=== PATIENT | female | born 1940 | race Caucasian/White ===

== ENCOUNTER → 2020-06-22 12:55 | Outpatient (CLI) | payer MEDICARE, SELFPAY ==
--- NOTE | ~2020-06-22 | MM_ITS ---
EXAMINATION: MM screening [facility] w sarah HISTORY: Screening TECHNIQUE: Craniocaudal and mediolateral oblique 3-D tomosynthesis images were obtained and synthetic 2-D images were generated. CAD analysis was submitted and interpreted. COMPARISON: Comparison to multiple prior studies sequentially, with oldest reviewed study dated 10/31. BREAST PARENCHYMAL COMPOSITION: There are scattered areas of fibroglandular density. FINDINGS: There is no evidence of suspicious mass, calcification, or architectural distortion to sugg est malignancy in either breast. There has been no suspicious interval change. IMPRESSION: 1. No mammographic evidence of malignancy. 2. Recommend routine screening mammography in one year. BI-RADS Category 1: Negative Reviewed, dictated and finalized at location A.
== END ==
PROVIDERS: PCP Family Medicine; Visit Provider Obstetrics & Gynecology
DX: Z12.31 Encounter for screening mammogram for malignant neoplasm of breast (principal)
CPT/HCPCS: 77063; 77067

== ENCOUNTER → 2021-07-25 13:49 | Outpatient (CLI) | payer MEDICARE, SELFPAY ==
--- NOTE | ~2021-07-25 | MM_ITS ---
EXAMINATION: MM screening [facility] w sarah HISTORY: Screening TECHNIQUE: Craniocaudal and mediolateral oblique 3-D tomosynthesis images were obtained and synthetic 2-D images were generated. CAD analysis was submitted and interpreted. COMPARISON: Comparison to multiple prior studies sequentially, with oldest reviewed study dated 12/09. BREAST PARENCHYMAL COMPOSITION: The breasts are almost entirely fatty. FINDINGS: There is no evidence of suspicious mass, calcification, or architectural distortion to sugg est malignancy in either breast. There has been no suspicious interval change. IMPRESSION: 1. No mammographic evidence of malignancy. 2. Recommend routine screening mammography in one year. BI-RADS Category 1: Negative Reviewed, dictated and finalized at location A.
== END ==
PROVIDERS: PCP Student in an Organized Health Care Education/Training Program; Visit Provider Obstetrics & Gynecology
DX: Z12.31 Encounter for screening mammogram for malignant neoplasm of breast (principal)
CPT/HCPCS: 77063; 77067

== ENCOUNTER → 2022-03-02 12:20 | Outpatient (CLI) | payer MEDICARE, SELFPAY ==
--- NOTE | ~2022-03-02 | XR_ITS ---
EXAMINATION: XR lumbar spine 2-3V DATE: 03/02/2022 13:14 INDICATION: Chronic left-sided low back pain without sciatica. TECHNIQUE: 3 views of lumbar spine were obtained. COMPARISON: Lumbar spine radiographs 08/02/2017 FINDINGS: There is 32 degrees dextroscoliosis of lumbar spine. Vertebral body heights are normal. The re is severely decreased disc height from L1-L2 through L5-S1 with endplate remodeling. There is mult ilevel severe facet joint osteoarthritis. A rim-calcified mass in right upper quadrant is likely a ga llstone in the gallbladder. IMPRESSION: 1. Severe lumbar spondylosis, stable from 08/02/2017. 2. Lumbar dextroscoliosis. Reviewed, dictated and finalized at location A.
--- NOTE | ~2022-03-02 | XR_ITS ---
EXAMINATION: XR thoracic spine 3V DATE: 03/02/2022 13:14 INDICATION: Chronic left-sided low back pain without sciatica. TECHNIQUE: 3 views of the thoracic spine were obtained. COMPARISON: None. FINDINGS: There is 6 degrees levocurvature of upper thoracic spine, 7 degrees dextrocurvature of mid thoracic spine, and 15 degrees levoscoliosis of thoracolumbar spine. Vertebral body heights are gabby l. There is moderate to severely decreased disc height from T4-T5 through T6-T7. There is mildly decr eased disc height at other levels. There are endplate osteophytes at most levels. There is severe cer vical spondylosis. IMPRESSION: 1. Severe mid thoracic spondylosis. Reviewed, dictated and finalized at location A.
== END ==
PROVIDERS: PCP Student in an Organized Health Care Education/Training Program; Visit Provider Student in an Organized Health Care Education/Training Program
DX: M47.894 Other spondylosis, thoracic region (principal); M47.896 Other spondylosis, lumbar region
CPT/HCPCS: 72072; 72100

== ENCOUNTER → 2022-03-23 12:57 | Outpatient (CLI) | payer MEDICARE, SELFPAY ==
--- NOTE | ~2022-03-23 | MR_ITS ---
EXAMINATION: MR thoracic spine wo con DATE: 03/23/2022 13:41 INDICATION: Chronic left-sided low back pain. Mid back pain. TECHNIQUE: Magnetic resonance imaging (MRI) of the thoracic spine was performed without intravenous c ontrast. Sagittal localizer T1-weighted FSE of the cervical spine was obtained. Thoracic spine sequen shasta included sagittal T2-weighted FSE, sagittal T1-weighted FSE, sagittal T2-weighted FS FSE, and axi al T2-weighted FSE. COMPARISON: Thoracic spine radiographs 03/02/2022 FINDINGS: There is 18 degrees levoscoliosis of thoracic spine. There is 2 mm anterolisthesis of C7 on T1. Vertebral body heights are normal. There is mildly decreased disc height at T4-T5, moderately de creased disc height from T5-T6 through T7-T8, and mildly decreased disc height at T12-L1. There is mu ltilevel severe facet joint osteoarthritis. There is mild neural foraminal stenosis at many levels on either side. On the right, there is moderate right neural foraminal stenosis at T2-T3. At T1-T2, the re is a central protrusion with mild central canal stenosis. At T5-T6, there is a central protrusion with mild central canal stenosis. At T12-L1, the disc is bulging with mild central canal stenosis. Th e spinal cord signal intensity is normal. IMPRESSION: 1. Moderate thoracic spondylosis. 2. Thoracic levoscoliosis. Reviewed, dictated and finalized at location A.
--- NOTE | ~2022-03-23 | MR_ITS ---
EXAMINATION: MR lumbar spine wo con DATE: 03/23/2022 13:46 INDICATION: Chronic left-sided low back pain. TECHNIQUE: Magnetic resonance imaging (MRI) of the lumbar spine was performed without intravenous con trast. Sequences included sagittal T2-weighted FSE, sagittal T2-weighted FS FSE, sagittal T1-weighted FSE, and axial T2-weighted FSE. COMPARISON: Lumbar spine MRI 07/25/2017 FINDINGS: There is 34 degrees dextroscoliosis of lumbar spine. There is 3 mm retrolisthesis of L5 on S1. There is severely decreased disc height from L1-L2 through L5-S1 with endplate remodeling. There is mild chronic anterior wedging of L1 and L2 vertebral bodies. The distal spinal cord signal intensi ty is normal. The conus medullaris is at L1. The following disc levels are specifically discussed: L1-L2: The disc is bulging and has an annular fissure. There is severe bilateral facet joint osteoart hritis. There is mild bilateral neural foraminal stenosis. There is mild central canal stenosis. L2-L3: The disc is bulging and has an annular fissure. There is mild bilateral facet joint osteoarthr itis. There is mild right and moderate left neural foraminal stenosis. There is mild central canal st enosis. L3-L4: The disc is bulging and has an annular fissure. There is severe bilateral facet joint osteoart hritis. There is mild bilateral neural foraminal stenosis. There is mild central canal stenosis. L4-L5: The disc is bulging and has an annular fissure. There is severe bilateral facet joint osteoart hritis. There is moderate right and mild left neural foraminal stenosis. There is moderate central ca nal stenosis. L5-S1: The disc is bulging and has an annular fissure. There is severe bilateral facet joint osteoart hritis. There is moderate right and mild left neural foraminal stenosis. There is mild central canal stenosis. IMPRESSION: 1. Severe lumbar spondylosis, stable from 07/25/2017. 2. Lumbar dextroscoliosis. Reviewed, dictated and finalized at location A.
== END ==
PROVIDERS: PCP Student in an Organized Health Care Education/Training Program; Visit Provider Student in an Organized Health Care Education/Training Program
DX: M51.36 Other intervertebral disc degeneration, lumbar region (principal); M19.90 Unspecified osteoarthritis, unspecified site; M51.34 Other intervertebral disc degeneration, thoracic region; M47.894 Other spondylosis, thoracic region; M47.896 Other spondylosis, lumbar region
CPT/HCPCS: 72146; 72148

== ENCOUNTER → 2022-10-26 13:23 | Outpatient (CLI) | payer MEDICARE, SELFPAY ==
--- NOTE | ~2022-10-26 | MM_ITS ---
EXAMINATION: MM screening [facility] w sarah HISTORY: Screening TECHNIQUE: Craniocaudal and mediolateral oblique 3-D tomosynthesis images were obtained and synthetic 2-D images were generated. CAD analysis was submitted and interpreted. COMPARISON: Comparison to multiple prior studies sequentially, with oldest reviewed study dated 01/27. BREAST PARENCHYMAL COMPOSITION: There are scattered areas of fibroglandular density. FINDINGS: There is no evidence of suspicious mass, calcification, or architectural distortion to sugg est malignancy in either breast. There has been no suspicious interval change. IMPRESSION: 1. No mammographic evidence of malignancy. 2. Recommend routine screening mammography in one year. BI-RADS Category 1: Negative Reviewed, dictated and finalized at location A. 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
== END ==
PROVIDERS: PCP Student in an Organized Health Care Education/Training Program; Visit Provider Obstetrics & Gynecology
DX: Z12.31 Encounter for screening mammogram for malignant neoplasm of breast (principal)
CPT/HCPCS: 77063; 77067

== ENCOUNTER → 2023-08-31 13:28 | Outpatient (CLI) | payer MEDICARE, SELFPAY ==
--- NOTE | ~2023-08-31 | DEXA_ITS ---
Bone Density Report Name: CONSUELO BURROWS Age: 83 Sex: Female Ethnicity: White Date of : 1940 Indication: postmenopausal; screening for osteoporosis; height loss; Referring Provider: Gil, Nathan Study: Bone densitometry was performed. Exam Date: August 31, 2023 Accession number: [id number] Bone Density: Region BMD T-score Z-score Classification AP Spine (L3, L4) 1.146 0.4 3.3 Normal Femoral Neck (Left) 0.660 -1.7 0.7 Osteopenia Total Hip (Left) 0.892 -0.4 1.7 Normal Femoral Neck (Right) 0.679 -1.5 0.8 Osteopenia Total Hip (Right) 0.808 -1.1 1.0 Osteopenia Total Hip Mean 0.850 -0.8 1.4 Normal World Health Organization criteria for BMD impression classify patients as: Normal (T-score at or above -1.0), Osteopenia (T-score between -1.0 and -2.5), or Osteoporosis (T-score at or below -2.5). 10-year Fracture Risk(1): Major Osteoporotic Fracture 14% Hip Fracture 3.6% Reported Risk Factors: [place] (), Neck BMD=0.660, BMI=33.7 (1) FRAX(R) Version 3.08. Fracture probability calculated for an untreated patient. Fracture probability may be lower if the patient has received treatment. Previous Exams: Region Exam Age BMD T-score BMD Change BMD Change Date g/cm2 vs Baseline vs Previous AP Spine(L3, L4) 08/31/2023 83 1.146 0.4 -0.100* -0.100* 05/23/2019 79 1.246 1.3 Total Hip(Left) 08/31/2023 83 0.892 -0.4 -0.040* -0.040* 05/23/2019 79 0.932 -0.1 Total Hip(Right) 08/31/2023 83 0.808 -1.1 -0.034* -0.034* 05/23/2019 79 0.842 -0.8 *Denotes significance at 95% confidence level, LSC for AP Spine = 0.022 g/cm2, LSC for Total Hip = 0.027 g/cm2 Clinical Information Provided by Patient: Has used the following medications: Vitamin D Patient maximum height was 66.75 Menopause Age: 57 No regular weight bearing exercise Does not regularly consume dairy products Drinks caffeinated beverages Onset of menses at age 14 Number of children 1 Impression: The patient has low bone mass, based on the Left Femoral Neck T-score. The patient has an estimated ten-year risk of hip fracture of 3.6% and an estimated ten-year risk of major fracture of 14%, based on the WHO FRAX algorithm. The BMD for the AP Spine(L3, L4) decreased, changing by -0.100 since the last DXA exam. The BMD for the Total Hip(Left) decreased, changing by -0.040 since the last DXA exam. The BMD for the
== END ==
PROVIDERS: PCP Obstetrics & Gynecology; Visit Provider Student in an Organized Health Care Education/Training Program
DX: Z78.0 Asymptomatic menopausal state (principal); M85.852 Other specified disorders of bone density and structure, left thigh; M85.851 Other specified disorders of bone density and structure, right thigh
CPT/HCPCS: 77080

== ENCOUNTER 2023-09-17 16:13 | Outpatient (CLI) | payer MEDICARE, SELFPAY ==
[2023-09-17 17:27] LABS: Basophils Absolute Auto 0.1 K/mm3 (0.0-0.1); Basophils Percent Auto 0.8 % (0.2-1.2); Eosinophils Absolute Auto 0.2 K/mm3 (0-0.3); Hematocrit 41.4 % (37.0-47.0); Hemoglobin 13.8 g/dL (12.0-15.0); Immature Granulocyte Absolute 0.05 K/mm3 (0.00-0.031); Immature Granulocyte Percent A 0.6 % (0-0.5); Lymphocytes Absolute Auto 1.72 K/mm3 (0.9-3.2); Lymphocytes Percent Auto 21.8 % (18.3-44.2); Mean Corpuscular HGB Conc 33.3 g/dl (32-36); Mean Corpuscular Hemoglobin 32.2 pg (26-34); Mean Corpuscular Volume 96.7 fl (80-100); Mean Platelet Volume 10.5 fl (7.4-10.4); Monocytes Absolute Auto 0.9 K/mm3 (0.1-0.6); Monocytes Percent Auto 10.9 % (2.6-8.5); Neutrophils Percent Auto 62.9 % (45.5-73.1); Platelet Count Result 233 k/mm3 (150-375); Red Blood Count 4.28 M/mm3 (4.2-5.4); Red Cell Distribution Width 13.1 % (11.5-14.5); White Blood Count 7.9 K/mm3 (4.5-10.0)
[2023-09-17 17:33] LABS: Appearance Urine Clear (Clear); Bacteria Urine 3+ /hpf; Bilirubin Urine Negative (Negative); Blood Urine Negative (Negative); Color Urine Yellow (Yellow); Glucose Urine UA Negative (Negative); Ketones Urine Negative (Negative); Leukocyte Esterase Ur 1+ LEU/UL (Negative); Nitrate Urine Negative (Negative); Non Pathogenic Casts 0-2; Protein Urine Negative (Negative); RBC Urine 0-2 /hpf (0-2); Specific Grav Ur 1.007 (1.001-1.035); Squamous Epithelial Cell Urine None seen /hpf (Few); Urobilinogen Urine 0.2 mg/dL (<2.0); WBC Urine 21-50 /hpf; pH Urine 6.5 (5.0-9.0)
[2023-09-17 17:47] LABS: Alanine Aminotransferase 28 U/L (6-35); Albumin Level 4.4 g/dL (3.5-5.1); Alkaline Phosphatase 77 U/L (38-126); Anion Gap 10 mmol/L (8-16); Aspartate Amino Transferase 37 U/L (14-36); Bilirubin,Total 0.9 mg/dL (0.2-1.3); Blood Urea Nitrogen 15 mg/dL (7-17); Calcium 9.6 mg/dL (8.4-10.2); Carbon Dioxide 28 mmol/L (22-30); Chloride 98 mmol/L (98-107); Cholesterol 169 mg/dL (0-200); Estimated Glomerular Filt Rate > 60; Glucose 97 mg/dL (65-110); HDL Direct 54 mg/dL; Potassium 3.6 mmol/L (3.4-5.0); Sodium 136 mmol/L (137-145); Triglycerides 182 mg/dL (<150)
[2023-09-17 17:49] LABS: Add Urine Microscopic? YES
[2023-09-17 17:58] LABS: LDL Cholesterol Direct 78 mg/dL
== END 2023-09-17 16:14 | disposition home or self-care (01) ==
LOC: ANHLAB 16:17
PROVIDERS: PCP Student in an Organized Health Care Education/Training Program; Visit Provider Student in an Organized Health Care Education/Training Program
DX: E78.5 Hyperlipidemia, unspecified (principal); R55 Syncope and collapse; I10 Essential (primary) hypertension
CPT/HCPCS: 36415; 80053; 80061; 81001; 84443; 85025; 87077; 87086; 87186

== ENCOUNTER → 2023-11-15 13:15 | Outpatient (CLI) | payer MEDICARE, SELFPAY ==
--- NOTE | ~2023-11-15 | MM_ITS ---
EXAMINATION: MM screening [facility] BI w sarah HISTORY: Screening TECHNIQUE: Craniocaudal and mediolateral oblique 3-D tomosynthesis images were obtained and synthetic 2-D images were generated. CAD analysis was submitted and interpreted. COMPARISON: Comparison to multiple prior studies sequentially, with oldest reviewed study dated 04/24. BREAST PARENCHYMAL COMPOSITION: Not Dense: Breast are almost entirely fatty. FINDINGS: There is no evidence of suspicious mass, calcification, or architectural distortion to sugg est malignancy in either breast. There has been no suspicious interval change. IMPRESSION: 1. No mammographic evidence of malignancy. 2. Recommend routine screening mammography in one year. BI-RADS Category 1: Negative Reviewed, dictated and finalized at location A. 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
== END ==
PROVIDERS: PCP Student in an Organized Health Care Education/Training Program; Visit Provider Obstetrics & Gynecology
DX: Z12.31 Encounter for screening mammogram for malignant neoplasm of breast (principal)
CPT/HCPCS: 77063; 77067

== ENCOUNTER 2023-12-18 09:43 | Outpatient (CLI) | payer MEDICARE, SELFPAY ==
--- NOTE | ~2023-12-18 | US_ITS ---
EXAMINATION: US abdomen limited DATE: 12/18/2023 10:26 INDICATION: Elevated liver enzymes TECHNIQUE: Multiple grayscale and Doppler ultrasound images of the abdomen were obtained. COMPARISON: None available FINDINGS: The head and body of the pancreas are normal. The pancreatic tail is obscured by bowel gas. The liver is normal with normal echogenicity and echotexture. No surface nodularity. Normal hepatope meron flow in the main portal vein. A stone is present in the nondistended gallbladder. No pericholecys tic fluid or gallbladder wall thickening. The normal common bile duct measures 5 mm. There was no son ographic Hathaway sign. IMPRESSION: 1. Cholelithiasis without evidence of cholecystitis. Reviewed, dictated and finalized at location L. 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
== END 2023-12-18 09:44 | disposition home or self-care (01) ==
LOC: ANHIMG 09:45
PROVIDERS: PCP Student in an Organized Health Care Education/Training Program; Visit Provider Student in an Organized Health Care Education/Training Program
DX: R74.8 Abnormal levels of other serum enzymes (principal); K80.20 Calculus of gallbladder without cholecystitis without obstruction
CPT/HCPCS: 76705

== ENCOUNTER 2024-06-09 13:53 | Outpatient (CLI) | payer MEDICARE, SELFPAY ==
--- NOTE | ~2024-06-09 | US_ITS ---
EXAMINATION: US soft tissue UE RT DATE: 06/09/2024 14:16 INDICATION: Neoplasm of skin TECHNIQUE: Multiple grayscale and Doppler ultrasound images of the right upper limb were obtained. COMPARISON: None FINDINGS: In the right upper limb near the shoulder, there is a 4.9 x 4.0 x 4.0 cm cystic mass with t hick septation. IMPRESSION: 1. 4.9 cm cystic mass near the right shoulder, which may be a neoplasm or hematoma. MRI without and w ith contrast is recommended. Reviewed, dictated and finalized at location A. IMPRESSION: 1. 4.9 cm cystic mass near the right shoulder, which may be a neoplasm or hemat krysten. MRI without and with contrast is recommended.
== END 2024-06-09 13:54 ==
PROVIDERS: PCP Student in an Organized Health Care Education/Training Program; Visit Provider Registered Nurse
DX: D48.5 Neoplasm of uncertain behavior of skin (principal); R59.0 Localized enlarged lymph nodes; D17.1 Benign lipomatous neoplasm of skin and subcutaneous tissue of trunk
CPT/HCPCS: 76882

== ENCOUNTER 2024-07-18 13:56 | Outpatient (CLI) | payer MEDICARE, SELFPAY ==
--- NOTE | ~2024-07-18 | MR_ITS ---
EXAMINATION: MR shoulder RT wo/w con DATE: 07/18/2024 15:07 INDICATION: Prior skin cancer presenting with nonpainful lump at the right shoulder TECHNIQUE: Magnetic resonance imaging (MRI) of the right shoulder was performed without intravenous c ontrast. Sequences included axial PD-weighted FS FSE, axial T1-weighted FS FSE, coronal oblique PD-we ighted FS FSE, coronal oblique T2-weighted FS FSE, sagittal T2-weighted FS FSE, sagittal T1-weighted SE. And postcontrast axial, sagittal and coronal T1-weighted FS FSE COMPARISON: None. FINDINGS: Coracoacromial arch: The acromion undersurface is curved in morphology (type II). There are small marginal osteophytes alee ng the anterior lateral margin of the acromion along the insertion of the normal coracoacromial ligam ent. There is prominent widening of the acromioclavicular joint space with erosive changes at both si lory of the joint space. No loss of T1 hyperintense marrow fat signal along the margins of the erosion s to suggest osteomyelitis. Rotator cuff: Moderate supraspinatus and infraspinatus tendinopathy. There is a partial-thickness articular sided t ear with attenuation of the distal tendon and retracted articular sided tear margin position 1.7 cm f rom the superior facet footplate near the level of the apex of the humeral head. The tear appears to extend across the length of the superior facet footplate. There is a small portion of the tear nonprofit manager iorly measuring approximately 4 mm AP which extends through the majority the thickness of the tendon but without definitive discontinuity along the bursal side of the tendon. The teres minor tendon is n ormal. Moderate subscapularis tendinopathy with small split tear occurring along the medial rim of th e intertubercular groove between the portion of the tendon attached to the lesser tuberosity footplat e and the bursal side of the tendon which remains contiguous with the intact transverse humeral ligam ent. There is mild supraspinatus and infraspinatus muscle atrophy. Biceps tendon, glenoid labrum and glenohumeral cartilage: There is moderate tendinopathy and longitudinal split tearing of the intra-articular and extra articu lar portion of the long head biceps tendon which is subluxed along the cephalad medial rim of the int ertubercular groove and into the subscapularis tendon split tear defect. There is severe glenohumeral osteoarthritis with extensive full and near full-thickness cartilage loss on both the glenoid and hu meral head with subarticular cystlike changes most prominent at the superomedial aspect of the bladimir l head and along the cephalad margin of the glenoid. There is some remodeling of the humeral head and glenoid. There are also large marginal osteophytes along the inferior aspect of the humeral head. Th ere is diffuse degenerative tearing of the glenoid labrum. Fluid: There is increased fluid in the long head biceps tendon sheath disproportionately small amount of flu id in the right humeral joint space consistent with bicipital tenosynovitis. There is moderate synovi tis in the recess of the glenohumeral joint space along with 6 mm ovoid loose osteochondral body at t he axillary recess. There is a large amount of fluid in the subacromial/subdeltoid bursa which extend s across the widened acromioclavicular joint space to communicate with a 5.3 x 3.7 x 3.0 cm loculated fluid collection which bulges cephalad exerting mass effect upon the undersurface of the trapezium a nd which appears to account for the reported mass of concern. Synovial enhancement at the glenohumera l joint space as well as at the margins of the subacromial bursa and bulging supraclavicular fluid co llection. Bones: No fracture or pathologic marrow replacing process. IMPRESSION: 1. Severe right glenohumeral osteoarthritis with diffuse labral degeneration. 2. Moderate rotator cuff tendinopathy with small partial-thickness articular sided tear
== END 2024-07-18 13:57 | disposition home or self-care (01) ==
LOC: MICIMG 13:59
PROVIDERS: PCP Student in an Organized Health Care Education/Training Program
DX: D48.5 Neoplasm of uncertain behavior of skin (principal); M19.011 Primary osteoarthritis, right shoulder; M75.101 Unspecified rotator cuff tear or rupture of right shoulder, not specified as traumatic
CPT/HCPCS: 73223; A9577

== ENCOUNTER 2025-08-12 14:43 | Outpatient (CLI) | payer MEDICARE, SELFPAY ==
--- NOTE | ~2025-08-12 | MM_ITS ---
EXAMINATION: MM screening [facility] BI w sarah HISTORY: Screening TECHNIQUE: Craniocaudal and mediolateral oblique 3-D tomosynthesis images were obtained and synthetic 2-D images were generated. CAD analysis was submitted and interpreted. COMPARISON: Comparison to multiple prior studies sequentially, with oldest reviewed study dated 07/25/2017. BREAST PARENCHYMAL COMPOSITION: Not Dense. The breasts are almost entirely fatty. FINDINGS: There is no evidence of suspicious mass, calcification, or architectural distortion to suggest malignancy in either breast. There has been no suspicious interval change. IMPRESSION: 1. No mammographic evidence of malignancy. 2. Recommend routine screening mammography in one year. BI-RADS Category 1: Negative Reviewed, dictated and finalized at location B.
== END 2025-08-12 14:44 | disposition home or self-care (01) ==
PROVIDERS: PCP Student in an Organized Health Care Education/Training Program; Visit Provider Student in an Organized Health Care Education/Training Program
DX: Z12.31 Encounter for screening mammogram for malignant neoplasm of breast (principal)
CPT/HCPCS: 77063; 77067